=== PATIENT | male | born 1950 | race Caucasian/White ===

== ENCOUNTER → 2016-12-25 | Outpatient (CLI) | payer OTHER, MEDICARE | END | disposition designated cancer center or children's hospital (05) | LOC: RAD 10:11 | DX: I63.9 Cerebral infarction, unspecified (principal) | CPT/HCPCS: 70450 ==

== ENCOUNTER 2017-06-08 20:35 | Inpatient (IN) | payer OTHER, MEDICARE ==
[2017-06-08 21:02] LABS: EOSINOPHIL (%) 7.6 % (0-5); EOSINOPHIL COUNT 0.5 K/uL (0-0.3); HEMATOCRIT 39.1 % (38.0-50.0); IMMATURE GRANULOCYTE (%) 0.5 % (0.0-0.7); INSTRUMENT ABS NEUTROPHIL CT 4.3 K/uL; MCH 29.5 PG (29.0-34.0); MCV 89.5 FL (86-99); MEAN PLAT.VOLUME 11.3 uM^3 (9.0-12.4); MONOCYTE (%) 8.3 % (3-12); MONOCYTE COUNT 0.5 K/uL (0-0.8); NEUTROPHIL (%) 68.1 % (45-76); NEUTROPHIL COUNT 4.3 K/uL (1.8-6.4); PLATELET COUNT 131 K/uL (156-360); RBC DIS.WIDTH-CV 14.7 % (11.8-14.6); RBC DIS.WIDTH-SD 48.5 % (39-53); RED BLOOD COUNT 4.37 M/uL (4.00-5.50); WHITE BLOOD COUNT 6.4 K/uL (4.1-10.2)
[2017-06-08 21:08] LABS: INTER. NORMALIZED RATIO 1.1
[2017-06-08 21:11] LABS: AMYLASE 51 IU/L (1-118); CHLORIDE 99 mEq/L (99-109); POTASSIUM 4.2 mEq/L (3.7-5.4); PTT 26.1 SEC (25-37); SODIUM 133 mEq/L (136-147)
[2017-06-08 21:13] LABS: GLUCOSE 103 mg/dL (70-99)
[2017-06-08 21:14] LABS: ANION GAP 6 MEQ/L (2-14)
[2017-06-08 21:16] LABS: SERUM ETHYL ALCOHOL < 10 mg/dL
[2017-06-08 21:17] LABS: GFR ESTIMATE (CALCULATED) > 59 mL/min/
[2017-06-08 21:18] LABS: UREA NITROGEN (BUN) 19 mg/dL (9-23)
[2017-06-08 21:20] LABS: LIPASE 32 U/L (1.0-51.0)
[2017-06-08 21:23] LABS: TROP-I INTERPRETATION NEGATIVE; TROPONIN-I < 0.01 ng/mL (0.0-0.30)
[2017-06-08] MEDS ORDERED: CATAPRES0.2 MG GT (21:53)
[2017-06-08] MEDS ORDERED: JEVITY1000 M1 GT (21:53)
[2017-06-08] MEDS ORDERED: PROVENTIL,2.5 MG/3 M IH (21:53)
[2017-06-08] MEDS ORDERED: MOBIC7.5 MG GT (21:54)
[2017-06-08] MEDS ORDERED: SYNTHROID50 MCG GT (21:54)
[2017-06-08] MEDS ORDERED: PROTONIX40 MG GT (21:54)
[2017-06-08] MEDS ORDERED: ELIQUIS2.5 MG GT (21:54)
[2017-06-08] MEDS ORDERED: TRAZODONE HCL50 MG GT (21:55)
[2017-06-08] MEDS ORDERED: LOVASTATIN40 MG GT (21:55)
[2017-06-08] MEDS ORDERED: COLACE10 MG/ML GT (21:55)
[2017-06-08] MEDS ORDERED: PROAIR HFA8.5 GM IH (21:56)
[2017-06-08] MEDS ORDERED: MELATONIN3 MG GT (21:56)
[2017-06-08 22:49] LABS: ADD MIUA? NO; BILIRUBIN NEGATIVE; BLOOD NEGATIVE; COLOR STRAW ((YELLOW)); GLUCOSE (STRIP) NEGATIVE; KETONES NEGATIVE; LEUKOCYTES NEGATIVE; NITRITE NEGATIVE; PROTEIN (STRIP) NEGATIVE; SPECIFIC GRAVITY 1.004 (1.000-1.030); UCUL ADDED? NO; UROBILINOGEN 0.2 MG/DL (0.2-1.0)
[2017-06-08 22:58] LABS: AMPHETAMINE NEGATIVE (500 ng/mL); BARBITURATES NEGATIVE (200 ng/mL); BENZODIAZEPINES NEGATIVE (150 ng/mL); COCAINE NEGATIVE (150 ng/mL); INTERNAL CONTROLS VALID? YES; METHADONE NEGATIVE (200 ng/mL); METHAMPHETAMINE NEGATIVE (500 ng/mL); OPIATES (MORPHINE) NEGATIVE (100 ng/mL); OXYCODONE NEGATIVE (100 ng/mL); PHENCYCLIDINE NEGATIVE (25 ng/mL); PROPOXYPHENE NEGATIVE (300 ng/mL); THC CANNABINOIDS NEGATIVE (50 ng/mL); TRICYCLIC ANTIDEPRESSANTS NEGATIVE (300 ng/mL)
[2017-06-09] VITALS (14 sets, daily range): BP systolic 0–148; BP diastolic 0–88
[2017-06-09 02:52] LABS: METH RESISTANT S AUREUS PCR POSITIVE (NEGATIVE)
[2017-06-09 02:54] LABS: PROBE CHECK PASS
[2017-06-09 08:40] LABS: HEMATOCRIT 40.5 % (38.0-50.0); MCHC 34.3 G/DL (30.0-36.0); MCV 90.4 FL (86-99); MEAN PLAT.VOLUME 11.8 uM^3 (9.0-12.4); PLATELET COUNT 129 K/uL (156-360); RBC DIS.WIDTH-CV 14.7 % (11.8-14.6); RBC DIS.WIDTH-SD 48.5 % (39-53); RED BLOOD COUNT 4.48 M/uL (4.00-5.50); WHITE BLOOD COUNT 8.5 K/uL (4.1-10.2)
[2017-06-09 08:50] LABS: ANION GAP 7 MEQ/L (2-14); CHLORIDE 104 MEQ/L (99-109); POTASSIUM 4.2 MEQ/L (3.7-5.4); SAMPLE HEMOLYSIS CHECK 0; SAMPLE ICTERIC CHECK 0; SAMPLE LIPEMIA CHECK 0; SODIUM 136 MEQ/L (136-147)
[2017-06-09 08:56] LABS: GFR ESTIMATE (CALCULATED) > 59 mL/min/; GLUCOSE 117 mg/dL (70-99); UREA NITROGEN (BUN) 13 mg/dL (9-23)
[2017-06-09 12:05] LABS: BASE EXCESS 3.4 mEq/L (-3 to +3); BICARBONATE 26.8 mEq/L (22-26); CARBOXY HGB 2.7 % (0-5); COMMENTS - BLOOD GASES A+C+; DEVICE NC; METHEMOGLOBIN 1.9 % (0-1.5); O2 FLOW 2 L/MIN; PCO2 36 mm Hg (35-45); PO2 56 mm Hg (80-100); SITE LR; TOTAL RESP RATE 14 resp/min; pH 7.48 (7.35-7.45)
== END 2017-06-09 15:17 | disposition short-term general hospital (02) | DRG 84 ==
LOC: TRA 20:35 → ENRESERV 22:35 → EDOF 22:35 → 4WEST 22:35 → ENRESERV 22:53 → 4WEST 06-09 00:43 → EDOF 06-09 00:43 → 4WEST 06-09 01:30
PROVIDERS: Emergency Medicine; Internal Medicine Critical Care Medicine
PROC: 0HQ1XZZ Repair Face Skin, External Approach (ICD-10-PCS; principal; 2017-06-08)
DX: S06.6X9A Traumatic subarachnoid hemorrhage with loss of consciousness of unspecified duration, initial encounter (principal); S01.01XA Laceration without foreign body of scalp, initial encounter; S02.82XA Fracture of other specified skull and facial bones, left side, initial encounter for closed fracture; W17.89XA Other fall from one level to another, initial encounter; Y92.009 Unspecified place in unspecified non-institutional (private) residence as the place of occurrence of the external cause; T17.918A Gastric contents in respiratory tract, part unspecified causing other injury, initial encounter; X58.XXXA Exposure to other specified factors, initial encounter; I48.91 Unspecified atrial fibrillation; Z79.01 Long term (current) use of anticoagulants; R40.2412 Glasgow coma scale score 13-15, at arrival to emergency department; I69.328 Other speech and language deficits following cerebral infarction; I69.391 Dysphagia following cerebral infarction; R13.10 Dysphagia, unspecified; I10 Essential (primary) hypertension; E78.5 Hyperlipidemia, unspecified; J44.9 Chronic obstructive pulmonary disease, unspecified; K21.9 Gastro-esophageal reflux disease without esophagitis; E03.9 Hypothyroidism, unspecified; F32.9 Major depressive disorder, single episode, unspecified; G89.29 Other chronic pain; Z93.1 Gastrostomy status; Z85.01 Personal history of malignant neoplasm of esophagus; Z92.3 Personal history of irradiation
CPT/HCPCS: 36600; 70450; 70486; 71020; 72125; 73502; 80048; 81003; 82150; 82803; 83690; 83735; 84100; 84484; 85025; 85027; 85610; 85730; 86900; 86901; 87641; 93005; 94799; 99202; 99281; 99285; C9132; G0480; J1953; J3010; J7042; J7050